=== PATIENT | female | born 1965 | race Caucasian/White ===

== ENCOUNTER 2018-08-11 21:42 | Emergency (ER) | payer BC ==
[2018-08-11] MEDS ORDERED: Sodium Chloride 0.9% 10 ML Syringe FLUSH PRN (21:56)
[2018-08-11] MEDS ORDERED: Morphine 4 MG/ML Syringe IVPUSH ONE (21:59)
[2018-08-11] MEDS ORDERED: Ondansetron 4 MG/2 ML SDV IVPUSH ONE (21:59)
[2018-08-11] MEDS ORDERED: Sodium Chloride 0.9% 1,000 ML IV ONE (21:59)
[2018-08-11] MEDS ORDERED: Iopamidol 612 MG/ML 100 ML Bottle IVPUSH ONE (22:22)
[2018-08-11 22:53] LABS: CHLORIDE,CL 104 mmol/L (98-107); SODIUM,NA 141 mmol/L (136-145)
[2018-08-11 22:56] LABS: ANION GAP 12.8 mmol/L (10-20)
[2018-08-11] MEDS ORDERED: Metoclopramide 10 MG/2 ML SDV IVPUSH ONE (23:20)
--- NOTE | 2018-08-11 23:34 | EDM.PDOC ---
ED HPI GENERAL MEDICAL PROBLEM - General Chief Complaint: Abdominal Pain Stated Complaint: Bloating Time Seen by Provider: 08/11/18 21:50 Source of Information: Reports: Patient History Limitations: Reports: No Limitations - History of Present Illness INITIAL COMMENTS - FREE TEXT/NARRATIVE: presents to ER with diffuse abdominal discomfort and bloating for the past several days. She states that it is worse in the evenings. Denies any fever or chills. She is nauseated but no significant vomiting. No chest pain or shortness of breath. She states that she has been having some diarrhea. No blood in stools. She states that she is able to eat and keep food down, but notes that the discomfort gets worse after the evening meal. She states that she has been taking OTC prilosec but this has not been of any benefit. Onset: Today Onset Date: 08/09/18 Location: Reports: Abdomen Quality: Reports: Ache, Dull, Pressure Severity: Severe Abdomen Pain Score (Numeric/FACES): 6 - Related Data Allergies Allergy/AdvReac Type Severity Reaction Status Date / Time No Known Allergies Allergy Verified 08/11/18 21:56 Home Meds: Home Meds L.acidoph,Paracasei, B.lactis [Probiotic] 1 cap DAILY 08/11/18 [History] Past Medical History - Past Surgical History GI Surgical History: Reports: Appendectomy, Cholecystectomy Social & Family History - Tobacco Use Smoking Status *Q: Current Every Day Smoker Years of Tobacco use: 37 Packs/Tins Daily: 1 ED ROS GENERAL - Review of Systems Review Of Systems: See Below Constitutional: Reports: No Symptoms HEENT: Reports: No Symptoms Respiratory: Reports: No Symptoms Cardiovascular: Reports: No Symptoms Endocrine: Reports: No Symptoms GI/Abdominal: Reports: Abdominal Pain, Diarrhea, Nausea : Reports: No Symptoms Musculoskeletal: Reports: No Symptoms Skin: Reports: No Symptoms Neurological: Reports: No Symptoms Psychiatric: Reports: No Symptoms Hematologic/Lymphatic: Reports: No Symptoms Immunologic: Reports: No Symptoms ED EXAM, GENERAL - Physical Exam Exam: See Below Exam Limited By: No Limitations General Appearance: Alert, WD/WN, No Apparent Distress Throat/Mouth: Normal Inspection, Normal Lips, Normal Teeth, Normal Gums, Normal Oropharynx, Normal Voice, No Airway Compromise Head: Atraumatic, Normocephalic Neck: Normal Inspection, Supple, Non-Tender, Full Range of Motion Respiratory/Chest: No Respiratory Distress, Lungs Clear, Normal Breath Sounds, No Accessory Muscle Use, Chest Non-Tender Cardiovascular: Normal Peripheral Pulses, Regular Rate, Rhythm, No Edema, No Gallop, No JVD, No Murmur, No Rub Peripheral Pulses: 4+: Radial (L), Radial (R) GI/Abdominal: Normal Bowel Sounds (hypoactive), Soft, Non-Tender, No Organomegaly, No Distention, No Mass, Pelvis Stable (Female) Exam: Deferred Rectal (Female) Exam: Deferred Back Exam: Normal Inspection, Full Range of Motion Extremities: Normal Inspection, Normal Range of Motion, Non-Tender, No Pedal Edema, Normal Capillary Refill Neurological: Alert, Oriented, CN II-XII Intact, Normal Cognition, Normal Gait, Normal Reflexes, No Motor/Sensory Deficits Psychiatric: Normal Affect, Normal Mood Skin Exam: Warm, Dry, Intact, Normal Color, No Rash Course - Vital Signs Last Recorded V/S: Last Vital Signs Temp 36.5 C 08/11/18 21:55 Pulse 92 08/11/18 21:55 Resp 16 08/11/18 21:55 BP 146/73 H 08/11/18 21:55 Pulse Ox 95 08/11/18 21:55 - Orders/Labs/Meds Orders: Active Orders 24 hr Category Date Time Status Abdomen Pelvis w Cont [CT] Stat Exams 08/11/18 21:57 Taken Sodium Chloride 0.9% [Saline Flush] Med 08/11/18 21:56 Active 10 ml FLUSH ASDIRECTED PRN Peripheral IV Insertion Adult [OM.PC] Routine Oth 08/11/18 21:56 Ordered Medication Orders Sodium Chloride (Saline Flush) 10 ml FLUSH ASDIRECTED PRN PRN Reason: Keep Vein Open Labs: Laboratory Tests 08/11/18 08/11/18 08/11/18 Range/Units 22:16 22:16 22:16 WBC 12.7 H (4.0-10.0) x10^3/uL RBC 4.85 (4.00-5.50) x10^6/uL Hgb 15.3 (12.0-16.0) g/dL Hct 44.5 (33.0-47.0) % MCV 91.8 (78.0-93.0) fL MCH 31.5 (26.0-32.0) pg MCHC 34.4 (32.0-36.0) g/dL RDW Coeff of Sushma 13.4 (10.0-15.0) % Plt Count 426 H (130-400) x10^3/uL Neut % (Auto) 63.8 (50.0-80.0) % Lymph % (Auto) 25.5 (25.0-50.0) % [place] % (Auto) 5.5 (2.0-11.0) % Eos % (Auto) 4.6 H (0.0-4.0) % Baso % (Auto) 0.6 (0.2-1.2) % PT 9.8 L (10.0-12.8) SEC INR 0.9 L (2.0-3.5) Sodium 141 (136-145) mmol/L Potassium 3.8 (3.5-5.1) mmol/L Chloride 104 (98-107) mmol/L Carbon Dioxide 28 (21-32) mmol/L Anion Gap 12.8 (10-20) mmol/L BUN 18 (7-18) mg/dL Creatinine 0.7 (0.55-1.02) mg/dL Est Cr Clr Drug Dosing 91.60 mL/min Estimated GFR (MDRD) > 60 Glucose 106 (74-106) mg/dL Calcium 9.1 (8.5-10.1) mg/dL Corrected Calcium 9.26 (8.5-10.1) mg/dL Phosphorus 3.5 (2.6-4.7) mg/dL Magnesium 1.8 (1.8-2.4) mg/dL Total Bilirubin 0.4 (0.2-1.0) mg/dL AST 15 (15-37) U/L ALT 25 (14-59) U/L Alkaline Phosphatase 72 (46-116) U/L C-Reactive Protein < 0.2 (<=0.9) mg/dL Total Protein 8.0 (6.4-8.2) g/dL Albumin 3.8 (3.4-5.0) g/dL Globulin 4.2 Albumin/Globulin Ratio 0.90 Amylase 46 (25-115) U/L Lipase 143 (73-393) U/L Urine Color (YELLOW) Urine Appearance (CLEAR) Urine pH (5.0-8.0) Ur Specific [place] Urine Protein (NEGATIVE) mg/dL Urine Glucose (UA) (NEGATIVE) mg/dL Urine Ketones (NEGATIVE) mg/dL Urine Occult Blood (NEGATIVE) Urine Nitrite (NEGATIVE) Urine Bilirubin (NEGATIVE) Urine Urobilinogen (0.2) EU/dL Ur Leukocyte Esterase (NEGATIVE) Urine RBC (NOT SEEN) /HPF Urine WBC (NOT SEEN) /HPF Ur Squamous Epith Cells (NEGATIVE) /HPF Urine Bacteria (NEGATIVE) /HPF Urine Mucus (NEGATIVE) /LPF 08/11/18 Range/Units 23:06 WBC (4.0-10.0) x10^3/uL RBC (4.00-5.50) x10^6/uL Hgb (12.0-16.0) g/dL Hct (33.0-47.0) % MCV (78.0-93.0) fL MCH (26.0-32.0) pg MCHC (32.0-36.0) g/dL RDW Coeff of Sushma (10.0-15.0) % Plt Count (130-400) x10^3/uL Neut % (Auto) (50.0-80.0) % Lymph % (Auto) (25.0-50.0) % [place] % (Auto) (2.0-11.0) % Eos % (Auto) (0.0-4.0) % Baso % (Auto) (0.2-1.2) % PT (10.0-12.8) SEC INR (2.0-3.5) Sodium (136-145) mmol/L Potassium (3.5-5.1) mmol/L Chloride (98-107) mmol/L Carbon Dioxide (21-32) mmol/L Anion Gap (10-20) mmol/L BUN (7-18) mg/dL Creatinine (0.55-1.02) mg/dL Est Cr Clr Drug Dosing mL/min Estimated GFR (MDRD) Glucose (74-106) mg/dL Calcium (8.5-10.1) mg/dL Corrected Calcium (8.5-10.1) mg/dL Phosphorus (2.6-4.7) mg/dL Magnesium (1.8-2.4) mg/dL Total Bilirubin (0.2-1.0) mg/dL AST (15-37) U/L ALT (14-59) U/L Alkaline Phosphatase (46-116) U/L C-Reactive Protein (<=0.9) mg/dL Total Protein (6.4-8.2) g/dL Albumin (3.4-5.0) g/dL Globulin Albumin/Globulin Ratio Amylase (25-115) U/L Lipase (73-393) U/L Urine Color Yellow (YELLOW) Urine Appearance Slightly cloudy H (CLEAR) Urine pH 6.0 (5.0-8.0) Ur Specific [place] 1.010 Urine Protein Negative (NEGATIVE) mg/dL Urine Glucose (UA) Negative (NEGATIVE) mg/dL Urine Ketones Negative (NEGATIVE) mg/dL Urine Occult Blood Moderate H (NEGATIVE) Urine Nitrite Negative (NEGATIVE) Urine Bilirubin Negative (NEGATIVE) Urine Urobilinogen 0.2 (0.2) EU/dL Ur Leukocyte Esterase Negative (NEGATIVE) Urine RBC 5-10 H (NOT SEEN) /HPF Urine WBC 0-5 (NOT SEEN) /HPF Ur Squamous Epith Cells Few H (NEGATIVE) /HPF Urine Bacteria Rare (NEGATIVE) /HPF Urine Mucus Rare H (NEGATIVE) /LPF Meds: Medications Generic Name Dose Route Start Last Admin Trade Name Freq PRN Reason Stop Dose Admin Sodium Chloride 10 ml 08/11/18 21:56 Saline Flush FLUSH ASDIRECTED PRN Keep Vein Open Discontinued Medications Generic Name Dose Route Start Last Admin Trade Name Freq PRN Reason Stop Dose Admin Sodium Chloride 1,000 mls @ 1,000 mls/hr 08/11/18 21:59 Normal Saline IV 08/11/18 22:58 .BOLUS ONE Iopamidol 100 ml 08/11/18 22:22 08/11/18 22:44 Isovue-300 (61%) IVPUSH 08/11/18 22:23 100 ml ONETIME ONE Administration Metoclopramide HCl 10 mg 08/11/18 23:20 08/11/18 23:26 Reglan IVPUSH 08/11/18 23:21 10 mg ONETIME ONE Administration Morphine Sulfate 4 mg 08/11/18 21:59 Morphine IVPUSH 08/11/18 22:00 ONETIME ONE Ondansetron HCl 4 mg 08/11/18 21:59 Zofran IVPUSH 08/11/18 22:00 ONETIME ONE - Radiology Interpretation Free Text/Narrative:: focal ileus at distal ileum/cecum. 1.9 cm ovarian cyst. No free fluid. No obvious signs of inflammation or acute abdomen. Diverticulosis without diverticulitis. Departure - Departure Time of Disposition: 23:34 Disposition: Home, Self-Care 01 Clinical Impression: Gastroenteritis, Ileus - Discharge Information Instructions: Ileus Referrals: Ingris Hutchins MD [Primary Care Provider] - Forms: ED Department Discharge Additional Instructions: Home to rest. Off work tomorrow due to illness. Be up walking around as much as possible. Reglan 5 mg every 6 hours to help with intestinal function/nausea. Take on a schedule for next 24 hours, then as needed for nausea after. Stick with a liquid diet for the next 24 hours. The more your bowel rests the better. Follow-up in clinic in 7-10 days, sooner if not gradually improving. - My Orders Last 24 Hours: My Active Orders 08/11/18 21:56 Sodium Chloride 0.9% [Saline Flush] 10 ml FLUSH ASDIRECTED PRN Peripheral IV Insertion Adult [OM.PC] Routine 08/11/18 21:57 Abdomen Pelvis w Cont [CT] Stat - Assessment/Plan Last 24 Hours: My Active Orders 08/11/18 21:56 Sodium Chloride 0.9% [Saline Flush] 10 ml FLUSH ASDIRECTED PRN Peripheral IV Insertion Adult [OM.PC] Routine 08/11/18 21:57 Abdomen Pelvis w Cont [CT] Stat Plan: Home to rest. Off work tomorrow due to illness. Be up walking around as much as possible. Reglan 5 mg every 6 hours to help with intestinal function/nausea. Take on a schedule for next 24 hours, then as needed for nausea after. Stick with a liquid diet for the next 24 hours. The more your bowel rests the better. Follow-up in clinic in 7-10 days, sooner if not gradually improving.
--- NOTE | 2018-08-12 08:42 | CT ---
[id number] CT/CT Abdomen Pelvis W IV EXAM: CT Abdomen Pelvis W IV CLINICAL DATA: ABDOMINAL PAIN COMPARISON STUDY: None. FINDINGS: Lung bases are clear. Liver, spleen, pancreas, and adrenal glands are unremarkable. Gallbladder has been resected. 20 mm left cortical renal cyst. No solid renal lesion. No urinary tract obstruction. No bowel obstruction or inflammation. Mild colonic diverticulosis. No lymphadenopathy, free fluid, or pneumoperitoneum. Uterus and adnexal regions are unremarkable. Urinary bladder is unremarkable. Moderate to advanced bilateral L4-5 facet joint arthropathy results in mild grade 1 anterolisthesis. Mild/moderate changes of spondylosis elsewhere in the spine. IMPRESSION: No acute findings in the abdomen or pelvis. Other findings are described above. Jack Alvarenga MD 08/12/18 0841 Thank you for allowing us to participate in the care of your patient.
== END 2018-08-11 23:51 | disposition home or self-care (01) ==
LOC: VM.ED 21:42
DX: K52.9 Noninfective gastroenteritis and colitis, unspecified (principal); K56.7 Ileus, unspecified; F17.210 Nicotine dependence, cigarettes, uncomplicated; Z79.899 Other long term (current) drug therapy
CPT/HCPCS: 74177; 80053; 81001; 82150; 83690; 83735; 84100; 85025; 85610; 86140; 96361; 96374; 96375; 99284; J2270; J2405; J2765; J7030; Q9967

== ENCOUNTER 2020-06-13 13:42 | Emergency (ER) | payer BC ==
[2020-06-13] MEDS ORDERED: Take Home: Cyclobenzaprine 10 MG Tab, 4 Tab Pack PO ONE (14:00)
[2020-06-13] MEDS ORDERED: Take Home: Naproxen 500 MG Tab, 4 Tab Pack PO ONE (14:02)
--- NOTE | 2020-06-13 20:42 | EDM.PDOC ---
ED HPI GENERAL MEDICAL PROBLEM - General Chief Complaint: Back Pain or Injury Stated Complaint: BACK PAIN Time Seen by Provider: 06/13/20 13:45 Source of Information: Reports: Patient History Limitations: Reports: No Limitations - History of Present Illness INITIAL COMMENTS - FREE TEXT/NARRATIVE: Pt. presents to ER with complaints of R sided intermittent mid back pain that she has been experiencing for approx. a week. 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 Pt. denies any specific trauma. Denies any falls. Pt. states that the discomfort is constant, but worse with movement/palpation. Pt. denies any paresthesia. in lower extremities. No blood in urine. No dysuria. No fever or chills. Right Middle Back Pain Score (Numeric/FACES): 10 - Related Data Allergies Allergy/AdvReac Type Severity Reaction Status Date / Time No Known Allergies Allergy Verified 06/13/20 14:29 Home Meds: Home Meds L.acidoph,Paracasei, B.lactis [Probiotic] 1 cap DAILY 08/11/18 [History] Multivitamin with Minerals [Multiple Vitamin] 1 tab PO DAILY 06/13/20 [History] Past Medical History - Past Health History Medical/Surgical History: Denies Medical/Surgical History - Infectious Disease History Infectious Disease History: Reports: None - Past Surgical History GI Surgical History: Reports: Appendectomy, Cholecystectomy Social & Family History - Tobacco Use Tobacco Use Status *Q: Never Tobacco User ED ROS GENERAL - Review of Systems Review Of Systems: See Below Constitutional: Reports: No Symptoms HEENT: Reports: No Symptoms Respiratory: Reports: No Symptoms Cardiovascular: Reports: No Symptoms Endocrine: Reports: No Symptoms GI/Abdominal: Reports: No Symptoms : Reports: No Symptoms Musculoskeletal: Reports: Back Pain Skin: Reports: No Symptoms Neurological: Reports: No Symptoms. Denies: Numbness, Paresthesia Psychiatric: Reports: No Symptoms Hematologic/Lymphatic: Reports: No Symptoms Immunologic: Reports: No Symptoms ED EXAM, GENERAL - Physical Exam Exam: See Below Exam Limited By: No Limitations General Appearance: Alert, WD/WN, No Apparent Distress Back Exam: CVA Tenderness (L), CVA Tenderness (R), Decreased Range of Motion, Muscle Spasm Extremities: Normal Inspection, Normal Range of Motion, Non-Tender, No Pedal Edema, Normal Capillary Refill Course - Vital Signs Last Recorded V/S: Last Vital Signs Temp 36.8 C 06/13/20 13:45 Pulse 69 06/13/20 13:45 Resp 16 06/13/20 13:45 BP 132/66 06/13/20 13:45 Pulse Ox 97 06/13/20 13:45 - Orders/Labs/Meds Labs: Laboratory Tests 06/13/20 Range/Units 13:53 Urine Color Yellow (YELLOW) POC Urine Appearance Clear (CLEAR) POC Urine pH 7.5 (5.0-8.0) Ur Specific [place] 1.010 (1.005-1.030) POC Urine Protein Negative (NEGATIVE) POC Ur Glucose (UA) Negative (NEGATIVE) POC Urine Ketones Negative (NEGATIVE) POC Ur Occult Blood Negative (NEGATIVE) POC Urine Nitrite Negative (NEGATIVE) POC Urine Bilirubin Negative (NEGATIVE) POC Urine Urobilinogen 0.2 (0.2) POC U Leukocyte Esteras Negative (NEGATIVE) Meds: Medications Discontinued Medications Generic Name Dose Route Start Last Admin Trade Name Philippe PRN Reason Stop Dose Admin Cyclobenzaprine HCl 1 packet 06/13/20 14:00 06/13/20 14:08 Take Home: Cyclobenzaprine 10 Mg Tab, 4 Tab Pack PO 06/13/20 14:01 1 packet ONETIME ONE Administration Naproxen 1 packet 06/13/20 14:02 06/13/20 14:08 Take Home: Naproxen 500 Mg Tab, 4 Tab Pack PO 06/13/20 14:03 1 packet ONETIME ONE Administration Departure - Departure Time of Disposition: 14:30 Disposition: Home, Self-Care 01 Clinical Impression: Mid back pain - Discharge Information Instructions: Cyclobenzaprine tablets, Acute Back Pain, Adult, Naproxen and naproxen sodium oral immediate-release tablets Referrals: Ingris Hutchins MD [Primary Care Provider] - Forms: ED Department Discharge Additional Instructions: Naproxen 500mg 1 twice daily as needed for discomfort Cyclobenzaprine 10mg 1 three times daily as needed for muscle spasm Off work tomorrow if needed. Walk around as much as possible, even if you don't want to. Recheck in clinic in 10-14 days, sooner if not gradually improving. Sepsis Event Note (ED) - Evaluation Sepsis Screening Result: No Definite Risk - Focused Exam Vital Signs: Vital Signs Temp Pulse Resp BP Pulse Ox 05/02/21 13:45 36.8 C 69 16 132/66 97 - Assessment/Plan Plan: Naproxen 500mg 1 twice daily as needed for discomfort Cyclobenzaprine 10mg 1 three times daily as needed for muscle spasm Off work tomorrow if needed. Walk around as much as possible, even if you don't want to. Recheck in clinic in 10-14 days, sooner if not gradually improving.
== END 2020-06-13 14:20 | disposition home or self-care (01) ==
LOC: VM.ED 13:42
DX: M54.6 Pain in thoracic spine (principal)
CPT/HCPCS: 81002; 99283; A9270-GY